=== PATIENT | male | born 1965 | race Caucasian/White ===

== ENCOUNTER 2021-01-02 13:44 | Emergency (ER) | payer MEDICAID, OTHER ==
[~2021-01-02] VITALS: Ht 175.3 cm; Wt 70.3 kg
[2021-01-02 14:00] VITALS: BP 133/82
--- NOTE | 2021-01-02 14:05 | NUR ---
PATIENT PRESENTED SELF FOR C/O R HAND PAIN S/P GLF 2 DAYS AGO. RATES PAIN 7/10. DENIES TINGLING IN THE EXTREMITY. RIGHTH HAND HAS SLIGHT SWELLING. NO BRUISING NOTED. WILL CONTINUE TO MONITOR THE PATIENT.
[2021-01-02] MEDS ORDERED: KETOROLAC TROMETHAMINE 15 MG/ML VIAL ONE (15:07)
[2021-01-02] MEDS: KETOROLAC TROMETHAMINE INJ 30 MG/ML VIAL IM ONE (15:12)
[2021-01-02] MEDS ORDERED: IBUP-1955 PO (15:23)
--- NOTE | 2021-01-02 15:50 | NUR ---
Patient discharged to home in stable condition. Written and verbal after care instructions given. Patient verbalizes understanding of instruction. The patient left ER in stable condition.
== END 2021-01-02 15:52 | disposition home or self-care (01) ==
LOC: ER 13:52
DX: S62.336A Displaced fracture of neck of fifth metacarpal bone, right hand, initial encounter for closed fracture (principal); G40.909 Epilepsy, unspecified, not intractable, without status epilepticus; G89.29 Other chronic pain; M54.9 Dorsalgia, unspecified; W18.39XA Other fall on same level, initial encounter; Y93.89 Activity, other specified; Y92.89 Other specified places as the place of occurrence of the external cause; Y99.8 Other external cause status
CPT/HCPCS: 29125; 73130; 96372; 99283; J1885

== ENCOUNTER 2021-08-16 13:00 | Emergency (ER) | payer MEDICAID, OTHER ==
[~2021-08-16] VITALS: Ht 175.3 cm; Wt 65.8 kg
[~2021-08-16 13:00] MED LIST: IBUP-1955 PO
--- NOTE | 2021-08-16 13:00 | NUR ---
PT BIB SELF C/O NECK PAIN STARTED YESTERDAY S/O FALL WHILE SKATEBOARDING. PT IS AAOX4, NOT IN RESPIRATORY DISTRESS, V/S STABLE, KEPT RESTED AND COMFORTABLE. WILL CONTINUE TO MONITOR.
--- NOTE | 2021-08-16 13:30 | NUR ---
SEEN AND EXMAINED BY .
--- NOTE | 2021-08-16 13:35 | NUR ---
SOFT CERVICAL COLLAR APPLIED.
--- NOTE | 2021-08-16 13:37 | NUR ---
PT IS WHEELED TO CT SCAN VIA [facility].
[2021-08-16] MEDS ORDERED: IBUP-1955 PO (14:46)
[2021-08-16] MEDS ORDERED: CYCL5TAB PO (14:46)
[2021-08-16 14:56] VITALS: BP 135/73
--- NOTE | 2021-08-16 14:56 | NUR ---
Patient discharged to home in stable condition. Written and verbal after care instructions given. Patient verbalizes understanding of instruction.
[2021-08-16] MEDS ORDERED: KETOROLAC TROMETHAMINE INJ 30 MG/ML VIAL IM ONE (15:00)
== END 2021-08-16 14:57 | disposition home or self-care (01) ==
LOC: ER 13:02
DX: S16.1XXA Strain of muscle, fascia and tendon at neck level, initial encounter (principal); S09.8XXA Other specified injuries of head, initial encounter; G40.909 Epilepsy, unspecified, not intractable, without status epilepticus; G89.29 Other chronic pain; V00.131A Fall from skateboard, initial encounter; Y93.51 Activity, roller skating (inline) and skateboarding; Y92.331 Roller skating rink as the place of occurrence of the external cause; Y99.8 Other external cause status
CPT/HCPCS: 70450-TC; 72125-TC